=== PATIENT | female | born 1990 | race Two or more races ===

== ENCOUNTER 2021-03-24 22:50 | Emergency (ER) | payer OTHER ==
[~2021-03-24] VITALS: Ht 154.9 cm; Wt 63.0 kg
[2021-03-25] MEDS ORDERED: ACETAMINOPHEN 500 MG TABLET PO ONE (00:45)
[2021-03-25 00:53] VITALS: BP 118/80
== END 2021-03-25 01:00 | disposition home or self-care (01) ==
LOC: EMS 22:54
DX: O9A.312 Physical abuse complicating pregnancy, second trimester (principal); S60.011A Contusion of right thumb without damage to nail, initial encounter; S60.031A Contusion of right middle finger without damage to nail, initial encounter; S60.042A Contusion of left ring finger without damage to nail, initial encounter; W23.0XXA Caught, crushed, jammed, or pinched between moving objects, initial encounter; Y93.89 Activity, other specified; Y92.89 Other specified places as the place of occurrence of the external cause; Y99.8 Other external cause status
CPT/HCPCS: 99283

== ENCOUNTER 2021-09-15 23:17 | Emergency (ER) | payer OTHER ==
[~2021-09-15] VITALS: Ht 157.5 cm; Wt 72.7 kg
[2021-09-16 00:05] VITALS: BP 111/74
== END 2021-09-16 01:48 | disposition home or self-care (01) ==
LOC: EMS 23:23
DX: O26.893 Other specified pregnancy related conditions, third trimester (principal); Z3A.40 40 weeks gestation of pregnancy
CPT/HCPCS: 64400; 99283; 99284

== ENCOUNTER 2023-08-03 09:09 | Emergency (ER) | payer OTHER ==
[~2023-08-03] VITALS: Ht 157.5 cm; Wt 65.9 kg
[2023-08-03 09:13] VITALS: TEMP 98
[2023-08-03 09:38] LABS: BASOPHILS % (AUTO) 0.3 % (0.0-2.0); EOSINOPHILS % (AUTO) 1.5 % (1.0-6.0); HEMATOCRIT 38.9 % (36-46); HEMOGLOBIN 13.4 g/dL (12.0-16.0); LYMPHOCYTES # (AUTO) 1.8 K/uL (1.0-4.8); LYMPHOCYTES % (AUTO) 21.5 % (22.0-44.0); MEAN CORPUSCULAR HEMOGLOBIN 32.4 pg (26.0-34.0); MEAN CORPUSCULAR HGB CONC 34.5 G/dL (31.0-37.0); MEAN CORPUSCULAR VOLUME 94 fL (80-100); MONOCYTES # (AUTO) 0.4 K/uL (0.1-1.0); MONOCYTES % (AUTO) 4.5 % (2.0-9.0); NEUTROPHILS # (AUTO) 5.9 K/uL (1.8-7.7); NEUTROPHILS % (AUTO) 72.2 % (40.0-70.0); PLATELET COUNT (AUTO) 266 K/uL (150-450); RED BLOOD CELL COUNT(AUTO) 4.14 MIL/uL (4.00-5.20); RED CELL DISTRIBUTION WIDTH 12.6 % (11.5-14.5); WHITE BLOOD COUNT (AUTO) 8.2 K/uL (4.5-11.0)
[2023-08-03 09:49] LABS: ANION GAP 10 mmol/L (8-16); CALCIUM, TOTAL 9.1 mg/dL (8.8-10.5); CARBON DIOXIDE 26 mmol/L (22-29); CHLORIDE 102 mmol/L (98-107); CREATININE 0.53 mg/dL (0.60-1.30); GLOMERULAR FILTR. RATE CALC > 60 mL/min (>60); GLUCOSE,RANDOM 100 mg/dL (70-110); POTASSIUM 4.1 mmol/L (3.5-5.1); SODIUM SERUM 138 mmol/L (136-145); UREA NITROGEN, BLOOD 7 mg/dL (7-18)
[2023-08-03 10:17] LABS: ALANINE AMINOTRANSFERASE 29 U/L (12-78); ALBUMIN 3.5 g/dL (3.4-5.0); ALKALINE PHOSPHATASE 40 U/L (46-116); ASPARTATE AMINOTRANSFERASE 15 U/L (15-37); BILIRUBIN,TOTAL 0.2 mg/dL (0.1-1.0); LIPASE 29 U/L (16-77); TOTAL PROTEIN, SERUM 7.7 g/dL (6.4-8.2)
[2023-08-03 10:24] LABS: APPEARANCE,URINE HAZY (CLEAR); BILIRUBIN,URINE NEGATIVE (NEGATIVE); COLOR,URINE YELLOW (YELLOW); GLUCOSE, URINE (UA) NEGATIVE (NEGATIVE); KETONES,URINE NEGATIVE (NEGATIVE); LEUKOCYTE ESTERASE ,URINE NEGATIVE (NEGATIVE); NITRATE,URINE NEGATIVE (NEGATIVE); OCCULT BLOOD,URINE NEGATIVE (NEGATIVE); PROTEIN,URINE 30-70 mg/dL (NEGATIVE); SPECIFIC GRAVITIY, URINE 1.026 (1.003-1.030); UROBILINOGEN,URINE <=1.0 mg/dL (<=1.0)
[2023-08-03] MEDS ORDERED: SODIUM CHLORIDE 0.9% 2,000 ML IV ONE (11:00)
[2023-08-03] MEDS ORDERED: ONDANSETRON HCL 4 MG/2 ML VIAL IVP ONE (11:00)
[2023-08-03] MEDS ORDERED: PYRIDOXINE HCL 50 MG TABLET PO ONE (11:00)
[2023-08-03] MEDS ORDERED: DOXYLAMINE SUCCINATE 25 MG TABLET PO ONE (11:00)
[2023-08-03] MEDS ORDERED: DOXY1TAB3 PO (13:32)
[2023-08-03 14:06] VITALS: BP 126/70; PULSE 90; RESP 16
== END 2023-08-03 14:07 | disposition home or self-care (01) ==
LOC: EMS 10:06
DX: O21.0 Mild hyperemesis gravidarum (principal); O26.891 Other specified pregnancy related conditions, first trimester; Z3A.01 Less than 8 weeks gestation of pregnancy; Z90.49 Acquired absence of other specified parts of digestive tract
CPT/HCPCS: 99285; 96374; 76801; 96361; 80053; 81003; 83690; 84702; 85025; 36415; J2405; J7030